=== PATIENT | female | born 1950 | race Caucasian/White ===

== ENCOUNTER → 2016-06-18 | Outpatient (CLI) | payer OTHER ==
[~2016-06-18] MED LIST: ASCO10004 PO; CETI10CA PO; DIPH25CA61 PO; FISH1CAP PO; FLUT9.9S NS; IBUP200C8 PO; INOS500T PO; MULT-717 PO; OLOP2.5D EACHEYE; PYRI100T2 PO; SELE200T10 PO; TACR30OI4 TP; UBID100C24 PO; [UNRECOGNIZED DRUG - CODE] PO
[2016-06-18 16:35] LABS: BLOOD UREA NITROGEN 17 mg/dL (7-18)
[2016-06-18 16:39] LABS: ASPARTATE AMINO TRANSFERASE 14 U/L (15-37)
== END | disposition home or self-care (01) ==
LOC: STAR 15:23
PROVIDERS: ATTEND Surgery
DX: Z01.818 Encounter for other preprocedural examination (principal)
CPT/HCPCS: 36415; 71020; 80053; 85025; 93005

== ENCOUNTER 2016-06-23 09:53 | Day surgery (SDC) | payer OTHER ==
[2016-06-18 15:11] VITALS: BP 137/79
[~2016-06-23] VITALS: Ht 160 cm; Wt 79.0 kg
[~2016-06-23 09:53] MED LIST changes: -HYDROmorphone 2 MG/ML, 1ML IVPush PRN; -LACTATED RINGERS 1,000 ML IV SCH; -LIDOCAINE 1%, 20ML ONE; -ONDANSETRON 2MG/ML, 2ML IVPush PRN; -OXYcodone/APAP 5/325MG TABLET PO PRN; -SODIUM BICARBONATE 4.2%, 5ML ONE
[2016-06-23] MEDS ORDERED: LACTATED RINGERS 1,000 ML IV SCH ×2 (10:07→14:30)
[2016-06-23] MEDS ORDERED: MIDAZOLAM 1 MG/ML, 2ML ONE (10:22)
[2016-06-23] MEDS ORDERED: FENTANYL PF 250 MCG/5ML ONE (10:22)
[2016-06-23] MEDS ORDERED: ACETAMINOPHEN 500 MG TABLET ONE (10:25)
[2016-06-23] MEDS ORDERED: LIDOCAINE 1%, 2ML SQ PRN (10:30)
[2016-06-23] MEDS ORDERED: ACETAMINOPHEN 500 MG TABLET PO ONE (10:30)
[2016-06-23] MEDS ORDERED: GABAPENTIN 300 MG CAPSULE PO SCH (10:30)
[2016-06-23] MEDS ORDERED: LIDOCAINE 1%, 2ML ONE (10:31)
[2016-06-23] MEDS ORDERED: SCOPOLAMINE PATCH, 1.5MG PATCH.TD72 TD ONE ×2 (11:12)
[2016-06-23] MEDS ORDERED: BUPIVACAINE/PF-EPI 0.5% 1:200K ONE (11:13)
[2016-06-23] MEDS ORDERED: ISOSULFAN BLUE 10 MG/ML, 5ML IV ONE (11:13)
[2016-06-23] MEDS ORDERED: MEPERIDINE/PF 25MG/0.5ML IVPush PRN (11:30)
[2016-06-23] MEDS ORDERED: PROMETHAZINE 25 MG/ML, 1ML IV PRN (11:30)
[2016-06-23] MEDS ORDERED: MIDAZOLAM 1 MG/ML, 2ML IV PRN (11:30)
[2016-06-23] MEDS ORDERED: hydrALAzine 20 MG/ML, 1ML IV PRN (11:30)
[2016-06-23] MEDS ORDERED: LABETALOL 5MG/ML, 20ML IV PRN (11:30)
[2016-06-23] MEDS ORDERED: EPHEDRINE 50 MG/ML, 1ML IVPush PRN (11:30)
[2016-06-23] MEDS ORDERED: ONDANSETRON 2MG/ML, 2ML IVPush PRN ×2 (11:30→15:00)
[2016-06-23] MEDS ORDERED: FENTANYL PF 100 MCG/2ML IV PRN (11:30)
[2016-06-23] MEDS ORDERED: ACETAMINOPHEN 325 MG TABLET PO PRN (11:30)
[2016-06-23] MEDS ORDERED: HYDROcodone/APAP 7.5-325MG/15ML UDC PO PRN (11:30)
[2016-06-23] MEDS ORDERED: OXYcodone 5 MG/5 ML ORAL.SOL UDC PO PRN (11:30)
[2016-06-23] MEDS ORDERED: HYDROmorphone 1 MG/ML, 1ML IV PRN (11:30)
[2016-06-23] MEDS ORDERED: PROPOFOL 10 MG/ML, 20ML ONE (11:31)
[2016-06-23] MEDS ORDERED: DEXAMETHASONE 4 MG/ML, 1ML ONE (11:31)
[2016-06-23] MEDS ORDERED: CEFAZOLIN 1,000 MG ONE (11:31)
[2016-06-23] MEDS ORDERED: ONDANSETRON 2MG/ML, 2ML ONE (11:31)
[2016-06-23] MEDS ORDERED: BUPIVACAINE/PF-EPI 0.5% 1:200K INFIL ONE (11:53)
[2016-06-23] MEDS ORDERED: OXYcodone 5 MG/5 ML ORAL.SOL UDC ONE (12:43)
[2016-06-23] MEDS ORDERED: HYDROmorphone 2 MG/ML, 1ML IVPush PRN (14:30)
[2016-06-23] MEDS ORDERED: OXYcodone/APAP 5/325MG TABLET PO PRN (15:00)
== END 2016-06-23 14:25 | disposition home or self-care (01) ==
LOC: OUT 09:53
PROVIDERS: ATTEND Surgery
DX: D05.12 Intraductal carcinoma in situ of left breast (principal); I10 Essential (primary) hypertension; E78.00 Pure hypercholesterolemia, unspecified; Z98.818 Other dental procedure status; Z98.49 Cataract extraction status, unspecified eye; Z96.1 Presence of intraocular lens; Z72.89 Other problems related to lifestyle; Z87.891 Personal history of nicotine dependence; Z82.0 Family history of epilepsy and other diseases of the nervous system; Z80.3 Family history of malignant neoplasm of breast; Z80.0 Family history of malignant neoplasm of digestive organs; Z80.41 Family history of malignant neoplasm of ovary; Z82.49 Family history of ischemic heart disease and other diseases of the circulatory system; E66.9 Obesity, unspecified; Z68.30 Body mass index [BMI] 30.0-30.9, adult
CPT/HCPCS: 19301; 88307; J0690; J1100; J2250; J2405; J2704; J3010; J3490; J7120

== ENCOUNTER → 2016-06-23 | Outpatient (CLI) | payer OTHER ==
[~2016-06-23] MED LIST changes: +HYDROmorphone 2 MG/ML, 1ML IVPush PRN; +LACTATED RINGERS 1,000 ML IV SCH; +LIDOCAINE 1%, 20ML ONE; +ONDANSETRON 2MG/ML, 2ML IVPush PRN; +OXYcodone/APAP 5/325MG TABLET PO PRN; +SODIUM BICARBONATE 4.2%, 5ML ONE
== END | disposition home or self-care (01) ==
LOC: CFH 08:34
PROVIDERS: ATTEND Surgery
DX: D05.12 Intraductal carcinoma in situ of left breast (principal)
CPT/HCPCS: 19281; J3490

== ENCOUNTER → 2016-08-27 | Outpatient (CLI) | payer OTHER | END | disposition home or self-care (01) | LOC: CFH 13:56 | PROVIDERS: ATTEND Internal Medicine Hematology & Oncology | DX: Z13.820 Encounter for screening for osteoporosis (principal); D05.12 Intraductal carcinoma in situ of left breast; M81.0 Age-related osteoporosis without current pathological fracture | CPT/HCPCS: 77080 ==

== ENCOUNTER → 2017-01-22 | Outpatient (CLI) | payer OTHER | END | disposition home or self-care (01) | LOC: CFH 14:42 | PROVIDERS: ATTEND Radiology Radiation Oncology | DX: D05.12 Intraductal carcinoma in situ of left breast (principal); I10 Essential (primary) hypertension | CPT/HCPCS: G0206-LT ==

== ENCOUNTER → 2017-04-02 | Outpatient (CLI) | payer OTHER | END | disposition home or self-care (01) | LOC: ROC 13:13 | PROVIDERS: ATTEND Radiology Radiation Oncology | DX: Z08 Encounter for follow-up examination after completed treatment for malignant neoplasm (principal); D05.92 Unspecified type of carcinoma in situ of left breast; Z92.3 Personal history of irradiation | CPT/HCPCS: 99213; G0463 ==

== ENCOUNTER → 2017-05-07 | Outpatient (CLI) | payer OTHER | END | disposition home or self-care (01) | LOC: CFH 16:06 | PROVIDERS: ATTEND Radiology Radiation Oncology | DX: Z12.31 Encounter for screening mammogram for malignant neoplasm of breast (principal); Z86.000 Personal history of in-situ neoplasm of breast | CPT/HCPCS: 77063; 77067 ==

== ENCOUNTER → 2017-10-15 | Outpatient (CLI) | payer OTHER | END | disposition home or self-care (01) | LOC: ROC 07:27 | PROVIDERS: ATTEND Radiology Radiation Oncology | DX: D05.12 Intraductal carcinoma in situ of left breast (principal) | CPT/HCPCS: 99212; G0463 ==

== ENCOUNTER → 2018-02-03 | Outpatient (CLI) | payer OTHER | END | disposition home or self-care (01) | LOC: ROC 08:51 | PROVIDERS: ATTEND Radiology Radiation Oncology | DX: D05.12 Intraductal carcinoma in situ of left breast (principal) | CPT/HCPCS: 99213; G0463 ==

== ENCOUNTER → 2018-05-14 | Outpatient (CLI) | payer OTHER | END | disposition home or self-care (01) | LOC: CFH 07:46 | PROVIDERS: ATTEND Radiology Radiation Oncology | DX: Z12.31 Encounter for screening mammogram for malignant neoplasm of breast (principal); Z80.3 Family history of malignant neoplasm of breast; Z87.891 Personal history of nicotine dependence; Z92.3 Personal history of irradiation | CPT/HCPCS: 77063; 77067 ==

== ENCOUNTER 2018-12-14 08:19 | Day surgery (SDC) | payer MEDICARE, OTHER ==
[~2018-12-14] VITALS: Ht 160 cm; Wt 76.9 kg
[~2018-12-14 08:19] MED LIST changes: +ANAS1TAB PO; +BIFI4CAP PO; +BUDE3CAP6 PO; +CALC300T5 PO; +CHOL200024 PO; +FLUO15CR2 TP; +GLUC1CAP13 PO; +PRAV10TA2 PO
[2018-12-14 09:20] VITALS: BP 129/71
[2018-12-14] MEDS ORDERED: LACTATED RINGERS 1,000 ML IV SCH (09:22)
[2018-12-14] MEDS ORDERED: ACETAMINOPHEN 500 MG TABLET ONE (09:28)
[2018-12-14] MEDS ORDERED: GABAPENTIN 300 MG CAPSULE PO ONE (09:30)
[2018-12-14] MEDS ORDERED: ACETAMINOPHEN 500 MG TABLET PO ONE (09:30)
[2018-12-14] MEDS ORDERED: SCOPOLAMINE PATCH, 1.5MG PATCH.TD72 TD ONE (09:30)
[2018-12-14] MEDS ORDERED: FENTANYL PF 100 MCG/2ML ONE (09:53)
[2018-12-14] MEDS ORDERED: MIDAZOLAM 1 MG/ML, 2ML ONE (09:53)
[2018-12-14] MEDS ORDERED: BUPIVACAINE/PF 0.5% ONE ×3 (10:10→11:09)
[2018-12-14] MEDS ORDERED: LIDOCAINE/PF 1%-EPI 1:200K, 30 ML ONE (10:10)
[2018-12-14] MEDS ORDERED: SUCCINYLCHOLINE 20 MG/ML, 10ML ONE (10:22)
[2018-12-14] MEDS ORDERED: ROCURONIUM 10 MG/ML,10ML ONE (10:22)
[2018-12-14] MEDS ORDERED: PHENYLEPHRINE 10 MG/ML ONE (10:22)
[2018-12-14] MEDS ORDERED: DEXAMETHASONE 4 MG/ML, 1ML ONE (10:22)
[2018-12-14] MEDS ORDERED: CEFAZOLIN 1,000 MG ONE (10:22)
[2018-12-14] MEDS ORDERED: ONDANSETRON 2MG/ML, 2ML ONE (10:22)
[2018-12-14] MEDS ORDERED: DIPHENHYDRAMINE 12.5MG/5ML, 10ML UDC PO PRN (10:30)
[2018-12-14] MEDS ORDERED: BUDESONIDE 3 MG CAP DR.ER PO PRN (10:30)
[2018-12-14] MEDS ORDERED: PROPOFOL 50 ML ONE (10:47)
[2018-12-14] MEDS ORDERED: KETOROLAC 30 MG/1 ML ONE (10:52)
[2018-12-14] MEDS ORDERED: hydrALAzine 20 MG/ML, 1ML IV PRN (11:00)
[2018-12-14] MEDS ORDERED: MIDAZOLAM 1 MG/ML, 2ML IV PRN (11:00)
[2018-12-14] MEDS ORDERED: METOPROLOL 1 MG/ML, 5ML IV PRN (11:00)
[2018-12-14] MEDS ORDERED: MEPERIDINE/PF 25MG/ML,1ML IVPush PRN (11:00)
[2018-12-14] MEDS ORDERED: OXYcodone 5 MG/5 ML ORAL.SOL UDC PO PRN (11:00)
[2018-12-14] MEDS ORDERED: PROMETHAZINE 25 MG/ML, 1ML IV PRN (11:00)
[2018-12-14] MEDS ORDERED: ALBUTEROL/IPRATROPIUM 2.5MG/0.5MG, 3 ML NPPB PRN (11:00)
[2018-12-14] MEDS ORDERED: FENTANYL PF 100 MCG/2ML IV PRN (11:00)
[2018-12-14] MEDS ORDERED: LIDOCAINE-MPF 2% ,5ML ONE (11:09)
[2018-12-14] MEDS ORDERED: OXYcodone 5 MG/5 ML ORAL.SOL UDC ONE (12:21)
[2018-12-14] MEDS ORDERED: ANASTROZOLE 1 MG TABLET PO SCH (21:00)
[2018-12-14] MEDS ORDERED: PRAVASTATIN 20 MG TABLET PO SCH (21:00)
[2018-12-15] MEDS ORDERED: TACROLIMUS 0.1% TP SCH (09:00)
== END 2018-12-14 14:25 | disposition home or self-care (01) ==
LOC: OUT 08:19
PROVIDERS: ATTEND Orthopaedic Surgery
DX: S46.012A Strain of muscle(s) and tendon(s) of the rotator cuff of left shoulder, initial encounter (principal); S46.211A Strain of muscle, fascia and tendon of other parts of biceps, right arm, initial encounter; S43.432A Superior glenoid labrum lesion of left shoulder, initial encounter; M19.012 Primary osteoarthritis, left shoulder; M75.42 Impingement syndrome of left shoulder; M65.812 Other synovitis and tenosynovitis, left shoulder; M75.52 Bursitis of left shoulder; E78.5 Hyperlipidemia, unspecified; I10 Essential (primary) hypertension; Z72.89 Other problems related to lifestyle; Z79.811 Long term (current) use of aromatase inhibitors; Z79.899 Other long term (current) drug therapy; Z87.891 Personal history of nicotine dependence; Z85.3 Personal history of malignant neoplasm of breast; Z88.8 Allergy status to other drugs, medicaments and biological substances; Z82.49 Family history of ischemic heart disease and other diseases of the circulatory system; X58.XXXA Exposure to other specified factors, initial encounter; Y93.89 Activity, other specified; Y92.89 Other specified places as the place of occurrence of the external cause; Y99.8 Other external cause status
CPT/HCPCS: 29823; 29824; 29826; 29827; 29828; 64415; C1713; J0330; J0690; J1100; J1885; J2250; J2370; J2405; J2704; J3010; J3490; J7120

== ENCOUNTER → 2019-04-18 | Outpatient (CLI) | payer OTHER ==
[~2019-04-18] MED LIST changes: -PYRI100T2 PO; +PYRI100T9 PO
== END | disposition home or self-care (01) ==
LOC: CFH 15:46
PROVIDERS: ATTEND Family Medicine
DX: M17.0 Bilateral primary osteoarthritis of knee (principal)

== ENCOUNTER 2019-12-02 17:02 | Emergency (ER) | payer OTHER ==
[~2019-12-02] VITALS: Ht 160 cm; Wt 79.8 kg
[~2019-12-02 17:02] MED LIST changes: +ASCO100018 PO; -ASCO10004 PO; -OLOP2.5D EACHEYE; +OLOP2.5D12 EACHEYE
[2019-12-02] MEDS ORDERED: KETOROLAC 30 MG/1 ML IVPush ONE (17:30)
[2019-12-02] MEDS ORDERED: SODIUM CHLORIDE FLUSH 10ML SYR IVF ONE (17:30)
--- NOTE | 2019-12-02 17:49 | NUR ---
PT TO CT.
[2019-12-02 17:54] LABS: BASOPHILS % (AUTO) 1 % (0-1); EOSINOPHILS % (AUTO) 1 % (1-7); LYMPHOCYTES % (AUTO) 18 % (22-44); MEAN CORPUSCULAR HEMOGLOBIN 31.2 pg (27.0-34.8); MEAN PLATELET VOLUME 7.4 fL (7.4-10.4); MONOCYTES % (AUTO) 10 % (2-9); NEUTROPHILS % (AUTO) 70 % (42-75); PLATELET COUNT 235 x10^3/uL (130-400); RED BLOOD COUNT 4.34 x10^6/uL (3.82-5.3); RED CELL DISTRIBUTION WIDTH 13.8 % (9.6-15.2)
[2019-12-02 17:57] LABS: ALBUMIN 4.1 g/dL (3.4-5.0); ANION GAP 4 mmol/L (5-15); CALCIUM 9.6 mg/dL (8.5-10.1); CHLORIDE 107 mmol/L (98-107)
[2019-12-02 17:58] LABS: MD NO
[2019-12-02] MEDS ORDERED: KETOROLAC 30 MG/1 ML ONE (17:58)
[2019-12-02 18:00] LABS: ALANINE AMINOTRANSFERASE 23 U/L (12-78); ALKALINE PHOSPHATASE 104 U/L (45-117); BILIRUBIN,TOTAL 0.5 mg/dL (0.2-1.0); CREATININE 0.89 mg/dL (0.55-1.02); TOTAL PROTEIN 7.9 g/dL (6.4-8.2)
--- NOTE | 2019-12-02 18:23 | NUR ---
PT AMBULATED TO THE BR W/ A STEADY GAIT. RETRNED TO ROOM W/O INCIDENT. VSS, SREEDHARN. AWAITING UA RESULTS.
[2019-12-02 18:39] LABS: MICROSCOPIC AUTO
--- NOTE | 2019-12-02 18:45 | NUR ---
BEDSIDE REPORT FROM LYLE RN, PT CARE TRANSFERRED AT THIS TIME. PT RESTING ON GURNEY, APPEARS COMFORTABLE, NAD, NO CHANGE IN CONDITION AT THIS TIME. WCTM. WAITING FOR URINE RESULTS.
--- NOTE | 2019-12-02 19:56 | NUR ---
PT NAD, NO CHANGE IN CONDITION, TO BE DC'D. WCMOHSEN. FRIEND AT BS
[2019-12-02 20:00] VITALS: BP 119/56
--- NOTE | 2019-12-02 20:01 | NUR ---
Patient given discharge instructions and they have confirmed that they understand the instructions. Patient ambulatory with steady gait. nad, denies additional questions or needs.
== END 2019-12-02 20:27 | disposition home or self-care (01) ==
LOC: ED 18:46
DX: N30.00 Acute cystitis without hematuria (principal); N20.0 Calculus of kidney; R10.9 Unspecified abdominal pain; R11.0 Nausea; E78.5 Hyperlipidemia, unspecified; E78.00 Pure hypercholesterolemia, unspecified; Z87.891 Personal history of nicotine dependence
CPT/HCPCS: 36415; 74176; 80053; 81001; 83690; 85025; 87086; 96374; 99284; J1885

== ENCOUNTER → 2019-12-28 | Outpatient (CLI) | payer OTHER | END | disposition home or self-care (01) | LOC: CFH 08:19 | PROVIDERS: ATTEND Internal Medicine Hematology & Oncology | DX: M85.88 Other specified disorders of bone density and structure, other site (principal); D05.12 Intraductal carcinoma in situ of left breast | CPT/HCPCS: 77080 ==